=== PATIENT | female | born 1960 | race Caucasian/White ===

== ENCOUNTER 2022-12-25 09:52 | Emergency (ER) | payer BC, OTHER, SELFPAY ==
[2022-12-25 10:47] LABS: #Basophils 0.1 10x3/uL (0.0-0.2); #Monocytes 0.6 10x3/uL (0.0-1.1); #Neutrophils 8.8 10x3/uL (1.5-8.4); %Basophils 0.5 % (0.0-2.0); %Eosinophils 0.4 % (0.0-6.0); %Lymphocytes 16.6 % (18.0-47.0); %Monocytes 4.8 % (0.0-10.0); %Neutrophils 77.1 % (40.0-75.0); Hematocrit 46.6 % (34.9-44.5); Hemoglobin 16.3 g/dL (12.0-15.5); Mean Corpuscular Hemoglobin 30.2 pg (27.0-33.0); Mean Corpuscular Volume 86.5 fl (81.6-98.3); Mean Platelet Volume 10.2 fl (7.4-10.4); Platelet Count 223 10x3/uL (150-450); RBC Distribution Width 12.4 % (11.5-14.5); Red Blood Cell (RBC) Count 5.39 10x6/uL (3.90-5.03); White Blood Cell (WBC) Count 11.4 10x3/uL (3.5-10.5)
[2022-12-25 11:06] LABS: ALT (SGPT) 21 U/L (8-55); AST (SGOT) 16 U/L (5-34); Albumin 4.8 g/dL (3.4-4.8); Alkaline Phosphatase 95 U/L (40-110); Anion Gap 20 mmol/L (10-20); BUN (Urea Nitrogen) 16 mg/dL (9.8-20.1); Bilirubin, Total 0.4 mg/dL (0.2-1.2); Calc. Creatinine Clearance 0 mL/min (70-130); Calcium 9.8 mg/dL (7.8-10.44); Carbon Dioxide 21 mmol/L (23-31); Chloride 99 mmol/L (98-107); Estimated GFR 72; Globulin 3.6 g/dL (2.4-3.5); Glucose 384 mg/dL (80-115); Magnesium 2.2 mg/dL (1.6-2.6); Potassium 4.7 mmol/L (3.5-5.1); Protein, Total 8.4 g/dL (5.8-8.1); Sodium 135 mmol/L (136-145)
[2022-12-25 11:37] LABS: Bilirubin Neg (Negative); Blood, Urine 250 (Negative); Clarity Clear (Clear); Glucose, Urine (Dipstick) >=1000 mg/dL (Negative); Ketone, Urine 50 mg/dL (Negative); Leukocyte 25 (Negative); Nitrite Positive (Negative); Protein, Urine (Dipstick) 30 mg/dl (Neg-Trace); Specific Gravity, Urine 1.015 (1.005-1.030); Urobilinogen Normal mg/dL (Less than 2)
[2022-12-25 11:45] LABS: CAUTI Indications for Culture Dysuria,urgency,freq; RBC/HPF Greater than 50 HPF (0-3)
[2022-12-25 11:47] LABS: Bacteria/HPF 1+ HPF (None Seen); Mucous/LPF Rare LPF (<2+); Squamous Epithelial None Seen HPF (0-3); Yeast-Budding Rare HPF (None Seen)
[2022-12-25 11:48] LABS: Urine Culture Reflex No No
== END 2022-12-25 12:41 | disposition home or self-care (01) ==
LOC: CSHERS 09:52
DX: E11.9 Type 2 diabetes mellitus without complications (principal); N39.0 Urinary tract infection, site not specified
CPT/HCPCS: 36416; 80053; 81001; 83036; 83735; 85025; 99283

== ENCOUNTER 2023-01-13 19:10 | Inpatient (IN) | payer BC ==
[2023-01-13] MEDS ORDERED: Cefepime 2 GM VIAL ONE (19:51)
[2023-01-13] MEDS ORDERED: Acetaminophen 500 MG TAB ONE (19:52)
[2023-01-13 20:31] LABS: Hematocrit 40.2 % (34.9-44.5); Hemoglobin 14.1 g/dL (12.0-15.5); Mean Corpuscular HGB CONC 35.1 g/dL (32.0-36.0); Mean Corpuscular Hemoglobin 29.8 pg (27.0-33.0); Mean Platelet Volume 9.9 fl (7.4-10.4); Platelet Count 196 10x3/uL (150-450); Red Blood Cell (RBC) Count 4.73 10x6/uL (3.90-5.03); White Blood Cell (WBC) Count 14.3 10x3/uL (3.5-10.5)
[2023-01-13 20:37] LABS: ALT (SGPT) 19 U/L (8-55); AST (SGOT) 14 U/L (5-34); Albumin 3.7 g/dL (3.4-4.8); Alkaline Phosphatase 107 U/L (40-110); Anion Gap 24 mmol/L (10-20); BUN (Urea Nitrogen) 17 mg/dL (9.8-20.1); Bilirubin, Total 0.5 mg/dL (0.2-1.2); Calc. Creatinine Clearance 0 mL/min (70-130); Calcium 9.1 mg/dL (7.8-10.44); Carbon Dioxide 14 mmol/L (23-31); Chloride 95 mmol/L (98-107); Estimated GFR 62; Globulin 3.9 g/dL (2.4-3.5); Glucose 379 mg/dL (80-115); Potassium 3.5 mmol/L (3.5-5.1); Protein, Total 7.6 g/dL (5.8-8.1); Sodium 129 mmol/L (136-145)
[2023-01-13 20:37] LABS: Bilirubin Neg (Negative); Blood, Urine 150 (Negative); Clarity Cloudy (Clear); Glucose, Urine (Dipstick) >=1000 mg/dL (Negative); Ketone, Urine 150 mg/dL (Negative); Leukocyte 25 (Negative); Nitrite Negative (Negative); Protein, Urine (Dipstick) 100 mg/dl (Neg-Trace); Specific Gravity, Urine 1.025 (1.005-1.030); Urobilinogen Normal mg/dL (Less than 2)
[2023-01-13 20:50] LABS: CAUTI Indications for Culture Fever or rigors
[2023-01-13 20:51] LABS: Bacteria/HPF 3+ HPF (None Seen); Squamous Epithelial 0-3 HPF (0-3); Transitional Epithelial 0-3 HPF (None Seen)
[2023-01-13 20:53] LABS: Urine Culture Reflex No No
[2023-01-13 21:09] LABS: MDiff Complete? YES
[2023-01-13 21:14] LABS: Band 29 % (5-11); Neutrophil 62 % (42-75)
[2023-01-13 21:15] LABS: Lymphocytes 5 % (21-51); Monocytes 3 % (0-10); RBC Morph Comment Within Normal Limits; Reactive Lymphocytes 1 % (0-10)
[2023-01-13 21:16] LABS: Platelet Adequacy Comment Appears Adequate; Toxic Granulation SLIGHT
[2023-01-13 21:27] LABS: SARS-CoV-2 NAA Rapid Test Not Detected (NotDetected)
[2023-01-13] MEDS ORDERED: Senokot S 8.6-50 MG TAB PO PRN (23:41)
[2023-01-13] MEDS ORDERED: Dextrose 50% Abboject 50 ML SYRINGE SLOW IVP PRN (23:41)
[2023-01-13] MEDS ORDERED: HumaLOG 300 UNITS/3 ML VIAL SC PRN (23:41)
[2023-01-13] MEDS ORDERED: Glucagon 1 MG/ML KIT IM PRN (23:41)
[2023-01-13] MEDS ORDERED: Ondansetron PF 4 MG/2 ML Vial IVP PRN (23:41)
[2023-01-13] MEDS ORDERED: Calcium Carbonate 500 MG ChewTAB PO PRN (23:41)
[2023-01-13] MEDS ORDERED: Dextrose 5% in Water 1,000 ML IV PRN (23:41)
[2023-01-14] MEDS ORDERED: Glucagon 1 MG/ML KIT IM PRN (00:01)
[2023-01-14] MEDS ORDERED: Dextrose 5% in Water 1,000 ML IV PRN (00:01)
[2023-01-14] MEDS ORDERED: Dextrose 50% Abboject 50 ML SYRINGE SLOW IVP PRN (00:01)
[2023-01-14] MEDS ORDERED: Insulin Regular 300 UNITS/3 ML VIAL ONE (00:30)
[2023-01-14 03:42] VITALS: BMI 28.5
[2023-01-14] MEDS ORDERED: Insulin Regular 300 UNITS/3 ML VIAL IVP SCH (04:00)
[2023-01-14] MEDS ORDERED: Potassium Chloride 20 MEQ TAB PO SCH (04:00)
[2023-01-14] MEDS ORDERED: Lactated Ringer's 1,000 ML IV SCH (04:00)
[2023-01-14] MEDS ORDERED: Lactated Ringer's 500 ML IV SCH (04:15)
[2023-01-14] MEDS: HumaLOG 300 UNITS/3 ML VIAL SC PRN ×4 (04:46→20:18)
[2023-01-14 05:31] LABS: Anion Gap 20 mmol/L (10-20); BUN (Urea Nitrogen) 15 mg/dL (9.8-20.1); Calc. Creatinine Clearance 71 mL/min (70-130); Calcium 9.7 mg/dL (7.8-10.44); Carbon Dioxide 19 mmol/L (23-31); Chloride 100 mmol/L (98-107); Estimated GFR 72; Glucose 318 mg/dL (80-115); Magnesium 2.1 mg/dL (1.6-2.6); Potassium 4.1 mmol/L (3.5-5.1); Sodium 135 mmol/L (136-145)
[2023-01-14] MEDS: Acetaminophen 325 MG TAB PO PRN ×2 (05:52→18:19)
[2023-01-14] MEDS ORDERED: metFORMIN 500 MG TAB PO SCH (08:00)
[2023-01-14] MEDS: Cefepime 1 GM in Sodium Chloride 0.9% 100 ML IVPB SCH ×2 (08:20→20:11)
[2023-01-14 08:44] LABS: Hematocrit 36.6 % (34.9-44.5); Hemoglobin 12.7 g/dL (12.0-15.5); Mean Corpuscular HGB CONC 34.7 g/dL (32.0-36.0); Mean Corpuscular Hemoglobin 29.7 pg (27.0-33.0); Mean Corpuscular Volume 85.5 fl (81.6-98.3); Mean Platelet Volume 10.4 fl (7.4-10.4); Platelet Count 155 10x3/uL (150-450); RBC Distribution Width 12.2 % (11.5-14.5); Red Blood Cell (RBC) Count 4.28 10x6/uL (3.90-5.03); White Blood Cell (WBC) Count 11.4 10x3/uL (3.5-10.5)
[2023-01-14 09:16] LABS: MDiff Complete? YES
[2023-01-14 10:50] LABS: Lymphocytes 4 % (21-51); Neutrophil 88 % (42-75)
[2023-01-14 10:52] LABS: Band 4 % (5-11); Monocytes 4 % (0-10)
[2023-01-14 10:53] LABS: Platelet Adequacy Comment Appears Adequate; RBC Morph Comment Within Normal Limits
[2023-01-14 12:12] LABS: Hemoglobin A1c 11.4 % (4.0-6.0)
[2023-01-15] MEDS: Acetaminophen 325 MG TAB PO PRN (00:17)
[2023-01-15] MEDS ORDERED: Cefepime 1 GM in Sodium Chloride 0.9% 100 ML IVPB SCH (01:45)
[2023-01-15] MEDS ORDERED: Meropenem 1 GM in Sodium Chloride 0.9% 100 ML IVPB SCH ×2 (01:45→02:00)
[2023-01-15] MEDS ORDERED: Lactated Ringer's 500 ML IV SCH (02:30)
[2023-01-15] MEDS: HumaLOG 300 UNITS/3 ML VIAL SC PRN ×3 (05:50→21:10)
[2023-01-15] MEDS ORDERED: Cefepime 2 GM in Sodium Chloride 0.9% 100 ML IVPB SCH (06:00)
[2023-01-15 06:55] LABS: Anion Gap 17 mmol/L (10-20); BUN (Urea Nitrogen) 13 mg/dL (9.8-20.1); Calc. Creatinine Clearance 75 mL/min (70-130); Calcium 8.6 mg/dL (7.8-10.44); Carbon Dioxide 18 mmol/L (23-31); Chloride 104 mmol/L (98-107); Estimated GFR 76; Glucose 316 mg/dL (80-115); Hematocrit 35.4 % (34.9-44.5); Mean Corpuscular HGB CONC 33.9 g/dL (32.0-36.0); Mean Corpuscular Hemoglobin 29.6 pg (27.0-33.0); Mean Corpuscular Volume 87.4 fl (81.6-98.3); Platelet Count 142 10x3/uL (150-450); RBC Distribution Width 12.3 % (11.5-14.5); Red Blood Cell (RBC) Count 4.05 10x6/uL (3.90-5.03); Sodium 135 mmol/L (136-145)
[2023-01-15 08:21] LABS: MDiff Complete? YES
[2023-01-15] MEDS: Meropenem 1 GM in Sodium Chloride 0.9% 100 ML IVPB SCH ×2 (10:03→18:07)
[2023-01-15 10:24] LABS: Lymphocytes 8 % (21-51)
[2023-01-15 10:28] LABS: Monocytes 6 % (0-10); Neutrophil 86 % (42-75); RBC Morph Comment Within Normal Limits
[2023-01-15 10:29] LABS: Platelet Adequacy Comment Appears Decreased
[2023-01-15] MEDS: Lantus 1000 UNITS/10 ML VIAL SC SCH (21:09)
[2023-01-16] MEDS: Meropenem 1 GM in Sodium Chloride 0.9% 100 ML IVPB SCH ×2 (01:50→08:27)
[2023-01-16] MEDS: HumaLOG 300 UNITS/3 ML VIAL SC PRN ×4 (06:03→20:48)
[2023-01-16 06:13] LABS: Anion Gap 15 mmol/L (10-20); BUN (Urea Nitrogen) 11 mg/dL (9.8-20.1); Calc. Creatinine Clearance 92 mL/min (70-130); Calcium 8.5 mg/dL (7.8-10.44); Carbon Dioxide 22 mmol/L (23-31); Chloride 105 mmol/L (98-107); Estimated GFR 97; Glucose 229 mg/dL (80-115); Potassium 4.1 mmol/L (3.5-5.1); Sodium 138 mmol/L (136-145)
[2023-01-16 06:19] LABS: #Eosinphils 0.1 10x3/uL (0.0-0.5); #Monocytes 0.4 10x3/uL (0.0-1.1); #Neutrophils 6.9 10x3/uL (1.5-8.4); %Basophils 0.5 % (0.0-2.0); %Eosinophils 1.4 % (0.0-6.0); %Lymphocytes 13.2 % (18.0-47.0); %Monocytes 4.2 % (0.0-10.0); %Neutrophils 79.2 % (40.0-75.0); Hematocrit 37.1 % (34.9-44.5); Hemoglobin 12.8 g/dL (12.0-15.5); Mean Corpuscular HGB CONC 34.5 g/dL (32.0-36.0); Mean Corpuscular Hemoglobin 29.8 pg (27.0-33.0); Mean Corpuscular Volume 86.5 fl (81.6-98.3); Mean Platelet Volume 10.6 fl (7.4-10.4); Platelet Count 158 10x3/uL (150-450); RBC Distribution Width 12.6 % (11.5-14.5); Red Blood Cell (RBC) Count 4.29 10x6/uL (3.90-5.03); White Blood Cell (WBC) Count 8.7 10x3/uL (3.5-10.5)
[2023-01-16] MEDS: Acetaminophen 325 MG TAB PO PRN ×3 (06:32→20:47)
[2023-01-16] MEDS: ALPRAZolam 0.25 MG TAB PO PRN ×2 (11:07→20:48)
[2023-01-16] MEDS: cefTRIAXone\\ROCEPHIN 2 GM in Sodium Chloride 0.9% 100 ML IVPB SCH (13:12)
[2023-01-16] MEDS: metFORMIN 500 MG TAB PO SCH (16:02)
[2023-01-16] MEDS: Lantus 1000 UNITS/10 ML VIAL SC SCH (20:49)
[2023-01-17] MEDS: Acetaminophen 325 MG TAB PO PRN (01:01)
[2023-01-17] MEDS: HumaLOG 300 UNITS/3 ML VIAL SC PRN ×3 (06:59→16:58)
[2023-01-17] MEDS: ALPRAZolam 0.25 MG TAB PO PRN (08:26)
[2023-01-17] MEDS: metFORMIN 500 MG TAB PO SCH ×2 (08:26→16:58)
[2023-01-17] MEDS: cefTRIAXone\\ROCEPHIN 2 GM in Sodium Chloride 0.9% 100 ML IVPB SCH (14:04)
[2023-01-17] MEDS ORDERED: Ciprofloxacin 500 MG TAB PO SCH (15:45)
[2023-01-17 16:57] VITALS: BP 133/64; TEMP 99.4
== END 2023-01-17 17:23 | disposition home or self-care (01) | DRG 871 ==
LOC: CSHERS 19:10 → CSHTELE 23:41 → UNDOADMIN 01-14 03:34
PROVIDERS: ADMIT Student in an Organized Health Care Education/Training Program; ATTEND Family Medicine
DX: A41.51 Sepsis due to Escherichia coli [E. coli] (principal); G93.41 Metabolic encephalopathy; N10 Acute pyelonephritis; E87.20 Acidosis, unspecified; E87.1 Hypo-osmolality and hyponatremia; Z79.84 Long term (current) use of oral hypoglycemic drugs; Z98.890 Other specified postprocedural states; Z83.3 Family history of diabetes mellitus; E11.65 Type 2 diabetes mellitus with hyperglycemia; E11.22 Type 2 diabetes mellitus with diabetic chronic kidney disease; N18.2 Chronic kidney disease, stage 2 (mild); Z79.4 Long term (current) use of insulin; Z79.899 Other long term (current) drug therapy; Z20.822 Contact with and (suspected) exposure to COVID-19
CPT/HCPCS: 36415; 36416; 71045; 74176; 80048; 80053; 81001; 82010; 83036; 83605; 83735; 84145; 84443; 85025; 87040; 87077; 87086; 87149; 87186; 93005; 93010; 93306; 94760; 94799; J0692; J0696; J1650; J1815; J2185; J3490; J7120